=== PATIENT | male | born 1990 | race Two or more races ===

== ENCOUNTER 2018-04-29 16:35 | Inpatient (IN) | payer OTHER ==
[2018-04-29 16:52] VITALS: BMI 35.3
--- NOTE | 2018-04-29 19:37 | HP ---
"COWS - Scale Resting Pulse: 1= [place] 81-100 (Pupils = 3 mm) Sweatin= Beads of Sweat on Face Restless Observation: 1= Difficult to Sit Still Pupil Size: 0= Normal to Room Light (Pupils = 3 mm) Bone or Joint Aches: 0= None Runny Nose/ Eye Tearin= Nasal Congestion GI Upset > 30mins: 0= None Tremor Observation: 2= Slight Tremor Visible Yawning Observation: 0= None Anxiety or Irritability: 1=Feels Anxious/Irritable Goose Flesh Skin: 0=Smooth Skin COWS Score: 9 CIWA Score - Admission Criteria [facility] Guidelines: Admission for Medically Managed Detox: Requires at least one of the followin. CIWA greater than 12 2. Seizures within the past 24 hours 3. Delirium tremens within the past 24 hours 4. Hallucinations within the past 24 hours 5. Acute intervention needed for co occurring medical disorder 6. Acute intervention needed for co occurring psychiatric disorder 7. Severe withdrawal that cannot be handled at a lower level of care (continued vomiting, continued diarrhea, abnormal vital signs) requiring intravenous medication and/or fluids 8. Admission ROS [facility] Chief Complaint: Here for percocet withdrawal. Allergies/Adverse Reactions: Allergies Allergy/AdvReac Type Severity Reaction Status Date / Time No Known Allergies Allergy Verified 04/29/18 18:16 History of Present Illness: Here for percocet detox. States when tried to detox on own had a mental breakdown. Nicotine use began at age 16. Marijuana use began at age 14. Percocet use began at age 23. Denies alcohol or beer use. Longest length of sobriety 5 months. Denies seizures, blackouts, overdoses. Denies significant PMH/PSH. States was hospitalized at [facility] with non-communication and depression for 3 weeks, 5 months ago caused by attempting to detox on own. States Seroquel was ordered but did not take. Denies depression at this time. Denies thoughts of harming self or others. Search Terms: Marcelarobin Yoav, 1990 Search Date: 04/29/2018 07:30:05 PM The Drug Utilization Report below displays all of the controlled substance prescriptions, if any, that your patient has filled in the last twelve months. The information displayed on this report is compiled from pharmacy submissions to the Department, and accurately reflects the information as submitted by the pharmacies. This report was requested by: Alicia Cali | Reference #: [id number] There are no results for the search terms that you entered. Exam Limitations: No Limitations - Ebola screening Have you traveled outside of the country in the last 21 days: No Have you had contact with anyone from an Ebola affected area: No Have you been sick,other than usual withdrawal symptoms: No Do you have a fever: No - Review of Systems Constitutional: Chills, Diaphoresis, Changes in sleep (Difficulty falling asleep ) EENT: reports: Nose Congestion Respiratory: reports: No Symptoms reported Cardiac: reports: No Symptoms Reported GI: reports: No Symptoms Reported : reports: No Symptoms Reported Musculoskeletal: reports: No Symptoms Reported Integumentary: reports: No Symptoms Reported Neuro: reports: Tremors Endocrine: reports: No Symptoms Reported Hematology: reports: No Symptoms Reported Psychiatric: reports: Judgement Intact, Orientated x3, Agitated, Anxious Patient History - Patient Medical History Hx Asthma: No Hx Cardiac Disorders: No Hx Seizures: No Hx Diabetes: No Hx Gastrointestinal Disorders: No Hx Sexually Transmitted Disorders: No Hx Renal Disease (ESRD): No Hx Depression: Yes - Patient Surgical History Past Surgical History: No - PPD History Previous Implant?: No Implanted On Prior R Admission?: No PPD to be Administered?: Yes - Smoking Cessation Smoking history: Current every day smoker Have you smoked in the past 12 months: Yes Aproximately how many cigarettes per day: 40 Hx Chewing Tobacco Use: No Initiated information on smoking cessation: Yes 'Breaking Loose' booklet given: 04/29/18 - Substance & Tx. History Hx Alcohol Use: No Hx Substance Use: Yes Substance Use Type: Heroin, Marijuana Hx Substance Use Treatment: No (tried stopping on own) - Substances Abused Marijuana/Hashish Route: Smoking Frequency: Daily Amount used: $10 Age of first use: 14 Date of Last Use: 04/29/18 PERCOCET Route: Oral Frequency: Daily Amount used: 10- 5/325MG Age of first use: 23 Date of Last Use: 04/28/18 Admission Physical Exam BHS - Vital Signs Vital Signs: Vital Signs - 24 hr 04/29/18 16:50 Temperature 98.7 F Pulse Rate 95 H Respiratory 18 Rate Blood Pressure 122/77 - Physical General Appearance: Yes: Nourished, Mild Distress, Tremorous, Sweating, Anxious HEENTM: Yes: EOMI, Hearing grossly Normal, Normocephalic, ANNA (Pupils = 3 mm), Pharynx Normal Respiratory: Yes: Lungs Clear, Normal Breath Sounds, No Respiratory Distress Neck: Yes: No masses,lesions,Nodules, Supple Breast: Yes: Breast Exam Deferred Cardiology: Yes: Regular Rhythm, Regular Rate, S1, S2 Abdominal: Yes: Non Tender, Soft, Increased Bowel Sounds Genitourinary: Yes: Within Normal Limits Back: Yes: Normal Inspection Musculoskeletal: Yes: full range of Motion, Gait Steady Extremities: Yes: Normal Capillary Refill, Normal Range of Motion, Non-Tender, Tremors (Mild tremors of hands) Neurological: Yes: triage registered nurse II-XII NML intact, Fully Oriented, Alert, Motor Strength 5/5, Normal Mood/Affect Integumentary: Yes: Normal Color, Dry, Warm, Diaphoresis Lymphatic: Yes: Within Normal Limits - Diagnostic (1) Opioid dependence with withdrawal Current Visit: Yes Status: Acute (2) Nicotine dependence, uncomplicated Current Visit: Yes Status: Chronic Qualifiers: Nicotine product type: cigarettes Qualified Code(s): F17.210 - Nicotine dependence, cigarettes, uncomplicated (3) Cannabis dependence, uncomplicated Current Visit: Yes Status: Chronic Cleared for Admission [facility] - Detox or Rehab [facility] Level of Care: Medically Supervised Detox Regimen/Protocol: Methadone [facility] Breath Alcohol Content Breath Alcohol Content: 0 Urine Drug Screen - Results Drug Screen Negative: No Urine Drug Screen Results: THC-Marijuana, OPI-Opiates, OXY-Oxycodone"
[2018-04-29] MEDS ORDERED: MAG HYDROX/AL HYDROX/SIMETH 30 ML UNIT-DOSE CUP PO PRN (20:18)
[2018-04-29] MEDS ORDERED: LOPERAMIDE HCL 2 MG CAPSULE PO PRN (20:18)
[2018-04-29] MEDS ORDERED: MENTHOL/PHENOL 1 EACH UD MM PRN (20:18)
[2018-04-29] MEDS ORDERED: ACETAMINOPHEN 325 MG TABLET (FP) PO PRN (20:18)
[2018-04-29] MEDS ORDERED: NICOTINE POLACRILEX 4 MG GUM BC PRN (20:18)
[2018-04-29] MEDS ORDERED: METHADONE HCL 10 MG TABLET (FOR DETOX USE ONLY) PO ONE ×2 (20:18→23:00)
[2018-04-29] MEDS ORDERED: MAGNESIUM HYDROX 2400MG/30ML ORAL SUSPENSION 30 ML CUP PO PRN (20:18)
[2018-04-29] MEDS ORDERED: MAGNESIUM CITRATE 300 ML BOTTLE PO PRN (20:18)
[2018-04-29] MEDS ORDERED: IBUPROFEN 400 MG TABLET (FP) PO PRN (20:18)
[2018-04-29] MEDS: THIAMINE HCL 100 MG TABLET (FP) PO SCH (21:28)
[2018-04-29] MEDS: diazePAM 5 MG TABLET PO PRN (21:29)
[2018-04-29] MEDS ORDERED: MELATONIN 5 MG TABLETS PO PRN ×2 (22:00)
[2018-04-30] MEDS: diazePAM 5 MG TABLET PO PRN ×4 (03:06→18:44)
[2018-04-30] MEDS ORDERED: CYCLOBENZAPRINE HCL 10 MG TABLET (FP) PO PRN (08:39)
[2018-04-30] MEDS ORDERED: METHADONE HCL 10 MG TABLET (FOR DETOX USE ONLY) PO ONE (10:00)
[2018-04-30] MEDS ORDERED: NICOTINE 21 MG/24 HOURS TOPICAL PATCH TD SCH (10:00)
[2018-04-30] MEDS ORDERED: PRENATAL VITAMINS W/ FOLIC ACID TABLET (FP) PO SCH (10:00)
[2018-04-30 11:14] LABS: HEMATOCRIT 43.9 % (35.4-49); HEMOGLOBIN 14.5 GM/dL (11.7-16.9); MCH 29.4 pg (25.7-33.7); MEAN CELL VOLUME 88.9 fl (80-96); MEAN PLT VOLUME 9.2 fl (7.5-11.1); PLATELET COUNT 193 K/MM3 (134-434); RBC 4.93 M/mm3 (4.00-5.60); RDW 13.6 % (11.9-15.9); WHITE BLOOD COUNT 9.1 K/mm3 (4.0-10.0)
[2018-04-30 11:51] LABS: ALBUMIN 3.6 g/dl (3.4-5.0); ALK PHOS 67 U/L (45-117); ANION GAP 7 MMOL/L (8-16); BILIRUBIN,TOTAL 0.4 mg/dL (0.2-1); BLOOD UREA NITROGEN 16 mg/dL (7-18); CALCIUM 8.7 mg/dL (8.5-10.1); CHLORIDE 106 mmol/L (98-107); CO2 28 mmol/L (21-32); GLUCOSE,RANDOM 109 mg/dL (74-106); POTASSIUM 3.9 mmol/L (3.5-5.1); SGOT/AST 16 U/L (15-37); SGPT/ALT 20 U/L (13-61); SODIUM 141 mmol/L (136-145); TOT PROT 6.5 g/dl (6.4-8.2)
[2018-04-30 11:58] LABS: URINE APPEARANCE TURBID; URINE BILIRUBIN NEGATIVE (<2.0 mg/dL); URINE COLOR AMBER; URINE GLUCOSE (UA) NEGATIVE (NEGATIVE); URINE KETONE NEGATIVE (NEGATIVE); URINE LEUK ESTERASE NEGATIVE (NEGATIVE); URINE NITRITE NEGATIVE (NEGATIVE); URINE PROTEIN NEGATIVE (NEGATIVE); URINE UROBILINOGEN NEGATIVE mg/dL (0.2-1.0)
--- NOTE | 2018-04-30 13:28 | EKG ---
Test Reason : Blood Pressure : / mmHG Vent. Rate : 081 BPM Atrial Rate : 081 BPM P-R Int : 200 ms QRS Dur : 100 ms QT Int : 370 ms P-R-T Axes : 062 052 046 degrees QTc Int : 429 ms NORMAL SINUS RHYTHM NORMAL ECG NO PREVIOUS ECGS AVAILABLE Confirmed by BRAULIO BURRELL MD ([id number]) on 04/30/2018 1:28:33 PM Referred By: Confirmed By:BRAULIO BURRELL MD
--- NOTE | 2018-04-30 16:57 | PN ---
BHS COWS - Scale Resting Pulse: 0= [place] 80 or Below Sweatin= Chills/Flushing Restless Observation: 1= Difficult to Sit Still Pupil Size: 0= Normal to Room Light Bone or Joint Aches: 1= Mild Discomfort Runny Nose/ Eye Tearin= None GI Upset > 30mins: 1= Stomach Cramp Tremor Observation of Outstretched Hands: 2= Slight Tremor Visible Yawning Observation: 1= 1-2x During Session Anxiety or Irritability: 2=Irritable/Anxious Goose Flesh Skin: 0=Smooth Skin COWS Score: 9 BHS Progress Note (SOAP) Subjective: Chills, Stomach cramping, Tremors. Objective: PATIENT A & O X 3, OBSERVED AMBULATING ON UNIT. IN NO ACUTE DISTRESS. 04/30/18 16:56 Vital Signs Temperature 97.9 F 04/30/18 14:50 Pulse Rate 78 04/30/18 14:50 Respiratory Rate 18 04/30/18 14:50 Blood Pressure 117/75 04/30/18 14:50 O2 Sat by Pulse Oximetry (%) Laboratory Tests 04/30/18 04/30/18 04/30/18 07:30 07:30 07:30 WBC 9.1 RBC 4.93 Hgb 14.5 Hct 43.9 MCV 88.9 MCH 29.4 MCHC 33.0 RDW 13.6 Plt Count 193 MPV 9.2 Sodium 141 Potassium 3.9 Chloride 106 Carbon Dioxide 28 Anion Gap 7 L BUN 16 Creatinine 1.0 Creat Clearance w eGFR > 60 Random Glucose 109 H Calcium 8.7 Total Bilirubin 0.4 AST 16 ALT 20 Alkaline Phosphatase 67 Total Protein 6.5 Albumin 3.6 Urine Color Urine Appearance Urine pH Ur Specific [place] Urine Protein Urine Glucose (UA) Urine Ketones Urine Blood Urine Nitrite Urine Bilirubin Urine Urobilinogen Ur Leukocyte Esterase RPR Titer Nonreactive 04/30/18 08:30 WBC RBC Hgb Hct MCV MCH MCHC RDW Plt Count MPV Sodium Potassium Chloride Carbon Dioxide Anion Gap BUN Creatinine Creat Clearance w eGFR Random Glucose Calcium Total Bilirubin AST ALT Alkaline Phosphatase Total Protein Albumin Urine Color Krista Urine Appearance Turbid Urine pH 5.0 Ur Specific [place] 1.027 Urine Protein Negative Urine Glucose (UA) Negative Urine Ketones Negative Urine Blood Negative Urine Nitrite Negative Urine Bilirubin Negative Urine Urobilinogen Negative Ur Leukocyte Esterase Negative RPR Titer LABS NOTED. Assessment: 04/30/18 16:57 WITHDRAWAL SYMPTOMS. Plan: CONTINUE DETOX.
[2018-04-30] MEDS: THIAMINE HCL 100 MG TABLET (FP) PO SCH (22:03)
[2018-05-01] MEDS: diazePAM 5 MG TABLET PO PRN ×2 (00:32→06:18)
[2018-05-01 06:27] VITALS: BP 101/60; PULSE 67; TEMP 98.7
[2018-05-01] MEDS ORDERED: METHADONE HCL 5 MG TABLET (FOR DETOX USE ONLY) PO ONE (10:00)
--- NOTE | 2018-05-01 17:50 | DS ---
[facility] Detox Discharge Summary Admission Date: 04/29/18 Discharge Date: 05/01/18 - History Present History: Cannabis Dependence, Opioid Dependence Additional Comments: Patient demanded to leave AMA. Patient is A, A, Ox3, in nad, ambulatory. 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 Patient stated that he is feeling fine and that he doesn't plan to do anymore drugs and that he is staying clean. Patient instructed to call 911 if feeling sick or withdrawal symptoms and to see his PCP within 3 days. Pertinent Past History: Opioid dependence Cannabis dependence Nicotine dependence - Physical Exam Results Vital Signs: Vital Signs Temperature 98.7 F 05/01/18 06:27 Pulse Rate 67 05/01/18 06:27 Respiratory Rate 20 05/01/18 06:27 Blood Pressure 101/60 05/01/18 06:27 O2 Sat by Pulse Oximetry (%) Pertinent Admission Physical Exam Findings: Withdrawal symptoms Laboratory Tests 04/30/18 04/30/18 04/30/18 07:30 07:30 07:30 WBC 9.1 RBC 4.93 Hgb 14.5 Hct 43.9 MCV 88.9 MCH 29.4 MCHC 33.0 RDW 13.6 Plt Count 193 MPV 9.2 Sodium 141 Potassium 3.9 Chloride 106 Carbon Dioxide 28 Anion Gap 7 L BUN 16 Creatinine 1.0 Creat Clearance w eGFR > 60 Random Glucose 109 H Calcium 8.7 Total Bilirubin 0.4 AST 16 ALT 20 Alkaline Phosphatase 67 Total Protein 6.5 Albumin 3.6 Urine Color Urine Appearance Urine pH Ur Specific [place] Urine Protein Urine Glucose (UA) Urine Ketones Urine Blood Urine Nitrite Urine Bilirubin Urine Urobilinogen Ur Leukocyte Esterase RPR Titer Nonreactive 04/30/18 08:30 WBC RBC Hgb Hct MCV MCH MCHC RDW Plt Count MPV Sodium Potassium Chloride Carbon Dioxide Anion Gap BUN Creatinine Creat Clearance w eGFR Random Glucose Calcium Total Bilirubin AST ALT Alkaline Phosphatase Total Protein Albumin Urine Color Krista Urine Appearance Turbid Urine pH 5.0 Ur Specific [place] 1.027 Urine Protein Negative Urine Glucose (UA) Negative Urine Ketones Negative Urine Blood Negative Urine Nitrite Negative Urine Bilirubin Negative Urine Urobilinogen Negative Ur Leukocyte Esterase Negative RPR Titer Labs reviewed - Medication Discharge Medications: Ambulatory Orders NK [No Known Home Medication] 04/29/18 - Diagnosis (1) Opioid dependence with withdrawal Status: Acute (2) Cannabis dependence, uncomplicated Status: Chronic (3) Nicotine dependence, uncomplicated Status: Chronic Qualifiers: Nicotine product type: cigarettes Qualified Code(s): F17.210 - Nicotine dependence, cigarettes, uncomplicated - AMA Did Patient Leave Against Medical Advice: Yes (Instructed to call 911 stat if feeling sick or withdrawal symptoms)
[2018-05-02] MEDS ORDERED: METHADONE HCL 5 MG TABLET (FOR DETOX USE ONLY) PO ONE (10:00)
[2018-05-03] MEDS ORDERED: METHADONE HCL 10 MG TABLET (FOR DETOX USE ONLY) PO ONE (10:00)
[2018-05-04] MEDS ORDERED: METHADONE HCL 5 MG TABLET (FOR DETOX USE ONLY) PO ONE (06:00)
== END 2018-05-01 09:33 | disposition left against medical advice (07) | DRG 770 ==
LOC: YASAS 16:35 → Y3N 20:36
PROC: HZ2ZZZZ Detoxification Services for Substance Abuse Treatment (ICD-10-PCS; principal; 2018-04-29)
DX: F11.23 Opioid dependence with withdrawal (principal); F12.20 Cannabis dependence, uncomplicated; F17.210 Nicotine dependence, cigarettes, uncomplicated
CPT/HCPCS: 36415; 80053; 81003; 85027; 86593; 93005; 93010

== ENCOUNTER 2018-06-29 17:33 | Emergency (ER) | payer OTHER ==
[2018-06-29 17:54] VITALS: BP 153/113; PULSE 96; TEMP 98; BMI 33.3
--- NOTE | 2018-06-29 17:56 | PDOC ---
Rapid Medical Evaluation Time Seen by Provider: 06/29/18 17:51 Medical Evaluation: Allergies Allergy/AdvReac Type Severity Reaction Status Date / Time No Known Allergies Allergy Verified 04/29/18 18:16 06/29/18 17:52 I have performed a brief in-person evaluation of this patient. The patient presents with a chief complaint of: headache, abd pain, diarrhea since yesterday. Feels like his opiod withdrawal sxs per pt. Last used percocet 2 days ago. Went to [facility] today but told no beds and referred to ED. Last detox was 3 months ago at [facility] Pertinent physical exam findings:hypertensive I have ordered the following:labs The patient will proceed to the ED for further evaluation. Discharge Disposition - Diagnosis Malaise - Referrals - Patient Instructions - Post Discharge Activity
[2018-06-29 18:15] LABS: BASO % 0.6 % (0-2.0); EOS % 1.1 % (0-4.5); HEMATOCRIT 51.8 % (35.4-49); LYMPH % 22.2 % (8-40); MCH 31.3 pg (25.7-33.7); MCHC 34.7 g/dl (32.0-35.9); MEAN CELL VOLUME 90.2 fl (80-96); MEAN PLT VOLUME 8.2 fl (7.5-11.1); MONO % 8.5 % (3.8-10.2); NEUT % 67.6 % (42.8-82.8); PLATELET COUNT 264 K/MM3 (134-434); RBC 5.74 M/mm3 (4.00-5.60); WHITE BLOOD COUNT 8.3 K/mm3 (4.0-10.0)
[2018-06-29 18:28] LABS: URINE APPEARANCE SLCLOUDY; URINE BILIRUBIN NEGATIVE (<2.0 mg/dL); URINE COLOR AMBER; URINE GLUCOSE (UA) NEGATIVE (NEGATIVE); URINE KETONE NEGATIVE (NEGATIVE); URINE LEUK ESTERASE NEGATIVE (NEGATIVE); URINE NITRITE NEGATIVE (NEGATIVE); URINE PROTEIN NEGATIVE (NEGATIVE); URINE UROBILINOGEN NEGATIVE mg/dL (0.2-1.0)
[2018-06-29 18:44] LABS: ALBUMIN 4.4 g/dl (3.4-5.0); ALK PHOS 88 U/L (45-117); ANION GAP 4 MMOL/L (8-16); BILIRUBIN,TOTAL 0.3 mg/dL (0.2-1); BLOOD UREA NITROGEN 12 mg/dL (7-18); CALCIUM 9.7 mg/dL (8.5-10.1); CHLORIDE 104 mmol/L (98-107); CO2 31 mmol/L (21-32); GLUCOSE,RANDOM 119 mg/dL (74-106); LIPASE 197 U/L (73-393); POTASSIUM 4.4 mmol/L (3.5-5.1); SGOT/AST 20 U/L (15-37); SGPT/ALT 33 U/L (13-61); SODIUM 138 mmol/L (136-145); TOT PROT 8.2 g/dl (6.4-8.2)
[2018-06-29 18:56] LABS: COCAINE, UR NEGATIVE ng/ml (CUTOFF=300); METHADONE, UR NEGATIVE ng/ml (CUTOFF=300); OPIATES, URI NEGATIVE ng/ml (CUTOFF=300); PHENCYCLIDINE,URINE NEGATIVE ng/ml (CUTOFF=25); URINE AMPHETAMINES NEGATIVE ng/ml (CUTOFF=500); URINE BARBITURATES NEGATIVE ng/ml (CUTOFF=200); URINE BENZODIAZEPINES NEGATIVE ng/ml (CUTOFF=200)
== END 2018-06-29 19:44 | disposition home or self-care (01) ==
LOC: JER 17:33
DX: R53.81 Other malaise (principal); I10 Essential (primary) hypertension; F11.90 Opioid use, unspecified, uncomplicated
CPT/HCPCS: 36415; 80053; 80307; 81003; 83690; 85025; 99281-25

== ENCOUNTER 2021-01-21 17:08 | Inpatient (IN) | payer OTHER ==
[2021-01-21] MEDS ORDERED: MENTHOL/PHENOL 1 EACH UD MM PRN (22:19)
[2021-01-21] MEDS ORDERED: ONDANSETRON *ODT* 4 MG TABLET SL PRN (22:19)
[2021-01-21] MEDS ORDERED: IBUPROFEN 400 MG TABLET (FP) PO PRN (22:19)
[2021-01-21] MEDS ORDERED: METHOCARBAMOL 500 MG TABLET PO PRN (22:19)
[2021-01-21] MEDS ORDERED: MAGNESIUM HYDROX 2400MG/30ML ORAL SUSPENSION 30 ML CUP PO PRN (22:19)
[2021-01-21] MEDS ORDERED: MAG HYDROX/AL HYDROX/SIMETH 30 ML UNIT-DOSE CUP PO PRN (22:19)
[2021-01-21] MEDS ORDERED: MAGNESIUM CITRATE 300 ML BOTTLE PO PRN (22:19)
[2021-01-21] MEDS ORDERED: ACETAMINOPHEN 325 MG TABLET (FP) PO PRN ×2 (22:19)
[2021-01-21] MEDS ORDERED: BISMUTH SUBSALICYLATE 524 MG/30 ML PO PRN (22:19)
[2021-01-21] MEDS ORDERED: cloNIDine HCL 0.1 MG TABLET PO PRN (22:22)
[2021-01-21] MEDS ORDERED: methaDONE HCL 10 MG TABLET (FOR DETOX USE ONLY) PO ONE (22:22)
[2021-01-22] MEDS ORDERED: methaDONE HCL 10 MG TABLET (FOR DETOX USE ONLY) ONE ×2 (00:28→10:39)
[2021-01-22 02:07] VITALS: BMI 31.8
[2021-01-22 10:32] LABS: HEMOGLOBIN 14.6 GM/dL (11.7-16.9); MCH 29.2 pg (25.7-33.7); MCHC 33.9 g/dl (32.0-35.9); MEAN CELL VOLUME 86.3 fl (80-96); MEAN PLT VOLUME 7.1 fl (7.5-11.1); PLATELET COUNT 331 10^3/uL (134-434); RBC 4.98 M/mm3 (4.00-5.60); WHITE BLOOD COUNT 8.9 K/mm3 (4.0-10.0)
[2021-01-22 10:45] LABS: ALBUMIN 3.4 g/dl (3.4-5.0); BLOOD UREA NITROGEN 12.2 mg/dL (7-18); CALCIUM 9.4 mg/dL (8.5-10.1)
[2021-01-22] MEDS: PRENATAL VITAMINS W/ FOLIC ACID TABLET (FP) PO SCH (10:45)
[2021-01-22] MEDS: NICOTINE 21 MG/24 HOURS TOPICAL PATCH TD SCH (10:45)
[2021-01-22 10:48] LABS: CREATININE 0.9 mg/dL (0.55-1.3)
[2021-01-22 10:50] LABS: BILIRUBIN,TOTAL 0.7 mg/dL (0.2-1); TOT PROT 7.2 g/dl (6.4-8.2)
[2021-01-22] MEDS: NICOTINE 10 MG CARTRIDGE (INHALER) IH PRN (17:55)
[2021-01-22] MEDS: MELATONIN 5 MG TABLETS PO SCH (22:04)
[2021-01-22] MEDS: THIAMINE HCL 100 MG TABLET (FP) PO SCH (22:04)
[2021-01-23] MEDS ORDERED: hydrOXYzine PAMOATE 25 MG CAPSULE (FP) PO PRN (09:33)
[2021-01-23] MEDS ORDERED: methaDONE HCL 10 MG TABLET (FOR DETOX USE ONLY) PO ONE (10:00)
[2021-01-23] MEDS: NICOTINE 21 MG/24 HOURS TOPICAL PATCH TD SCH (11:05)
[2021-01-23] MEDS: NICOTINE 10 MG CARTRIDGE (INHALER) IH PRN (11:06)
[2021-01-23] MEDS: PRENATAL VITAMINS W/ FOLIC ACID TABLET (FP) PO SCH (11:07)
[2021-01-23] MEDS: NICOTINE POLACRILEX 4 MG GUM BUC PRN (21:50)
[2021-01-23] MEDS: MELATONIN 5 MG TABLETS PO SCH (21:52)
[2021-01-23] MEDS: THIAMINE HCL 100 MG TABLET (FP) PO SCH (21:52)
[2021-01-23] MEDS: diazePAM 5 MG TABLET PO PRN (21:54)
[2021-01-24] MEDS ORDERED: methaDONE HCL 10 MG TABLET (FOR DETOX USE ONLY) ONE (09:08)
[2021-01-24] MEDS: NICOTINE 21 MG/24 HOURS TOPICAL PATCH TD SCH (10:28)
[2021-01-24] MEDS: PRENATAL VITAMINS W/ FOLIC ACID TABLET (FP) PO SCH (10:28)
[2021-01-24] MEDS: NICOTINE POLACRILEX 4 MG GUM BUC PRN ×2 (10:29→15:41)
[2021-01-24] MEDS: NICOTINE 10 MG CARTRIDGE (INHALER) IH PRN (15:41)
[2021-01-24] MEDS: MELATONIN 5 MG TABLETS PO SCH (21:58)
[2021-01-24] MEDS: diazePAM 5 MG TABLET PO PRN (21:58)
[2021-01-24] MEDS: THIAMINE HCL 100 MG TABLET (FP) PO SCH (21:58)
[2021-01-25] MEDS ORDERED: methaDONE HCL 10 MG TABLET (FOR DETOX USE ONLY) PO ONE (10:00)
[2021-01-25] MEDS: PRENATAL VITAMINS W/ FOLIC ACID TABLET (FP) PO SCH (10:50)
[2021-01-25] MEDS: NICOTINE 21 MG/24 HOURS TOPICAL PATCH TD SCH (11:12)
[2021-01-25] MEDS: MELATONIN 5 MG TABLETS PO SCH (22:31)
[2021-01-25] MEDS: THIAMINE HCL 100 MG TABLET (FP) PO SCH (22:31)
[2021-01-25] MEDS: NICOTINE POLACRILEX 4 MG GUM BUC PRN (22:32)
[2021-01-26] MEDS: NICOTINE POLACRILEX 4 MG GUM BUC PRN (06:02)
[2021-01-26 09:23] VITALS: BP 117/91; PULSE 85; TEMP 96.6
[2021-01-26] MEDS: NICOTINE 21 MG/24 HOURS TOPICAL PATCH TD SCH (11:06)
[2021-01-26] MEDS: PRENATAL VITAMINS W/ FOLIC ACID TABLET (FP) PO SCH (11:06)
== END 2021-01-26 09:33 | disposition home or self-care (01) | DRG 773 ==
LOC: YASAS 17:08 → Y3N 01-22 10:47
PROVIDERS: ADMIT Allergy & Immunology; ATTEND Allergy & Immunology
PROC: HZ2ZZZZ Detoxification Services for Substance Abuse Treatment (ICD-10-PCS; principal; 2021-01-22)
DX: F11.23 Opioid dependence with withdrawal (principal); F14.20 Cocaine dependence, uncomplicated; F12.20 Cannabis dependence, uncomplicated; F17.210 Nicotine dependence, cigarettes, uncomplicated; R53.81 Other malaise
CPT/HCPCS: 36415; 80053; 85027; 86780; 90832; 93005; 93010; C9803; J0735; U0003; U0005